=== PATIENT | female | born 1970 | race Caucasian/White ===

== ENCOUNTER 2019-01-16 10:37 | Emergency (ER) | payer MEDICAID ==
[2019-01-16] MEDS: DEXAMETHASONE 10 MG/ML 1 ML INJ IM (13:40)
[2019-01-16] MEDS: DIAZEPAM 5 MG TAB PO ×2 (13:40→13:41)
[2019-01-16] MEDS: KETOROLAC 60 MG INJ IM (13:40)
== END 2019-01-16 14:12 | disposition home or self-care (01) ==
LOC: FTE 10:37
DX: M54.5 Low back pain (principal)
CPT/HCPCS: 81025; 96372; 99284-25